=== PATIENT | female | born 1990 | race Caucasian/White ===

== ENCOUNTER 2017-03-21 13:47 | Emergency (ER) | payer OTHER ==
[~2017-03-21] VITALS: Ht 180.3 cm; Wt 59.0 kg
[2017-03-21 14:00] VITALS: BP 99/64
[2017-03-21 14:28] LABS: APPEARANCE,URINE VERY CLOUDY; KETONES,URINE 1+ (NEGATIVE); LEUKOCYTE ESTERASE ,URINE 3+ (NEGATIVE); NITRITE,URINE POSITIVE (NEGATIVE); PH,URINE 5 (4.5-8.0); PROTEIN,URINE 2+ (NEGATIVE); UROBILINOGEN,URINE 1 MG/DL (0.0-1.0)
[2017-03-21 14:41] LABS: BACTERIA,URINE MODERATE /HPF; SQUAMOUS EPITHELIAL CELL,UR FEW /LPF (NONE/OCC)
[2017-03-21 14:42] LABS: AMORPHOUS SEDIMENT,UR MODERATE /LPF; ICTOTEST NEGATIVE; MUCUS,URINE FEW /LPF (NONE/OCC)
[2017-03-21] MEDS ORDERED: IBUPROFEN600 MG ORAL (14:46)
[2017-03-21] MEDS ORDERED: NITROFURANTOIN100 M2 ORAL (14:46)
[2017-03-21 15:06] VITALS: BP 99/64
--- NOTE | 2017-03-21 22:19 | Emergency Room Report ---
History of Present Illness General Chief Complaint: Abdominal Pain Source: Patient (KATHRYN SHARP) Present Illness HPI The patient is a 26-year-old female presenting for possible urinary tract infection. She states that she has had vaginal pain, dysuria, and hematuria since yesterday. Pain is an 8/10 burning sensation. Does not radiate. She also admits to a dark brown vaginal discharge. She denies any other symptoms (KATHRYN SHARP) Allergies: Coded Allergies: No Known Allergies (Unverified , 03/21/17) Patient History Past Medical History: see triage record Pertinent Family History: none Last Menstrual Period: 02/23/17 Now: No Reviewed Nursing Documentation: PMH: Agreed, PSxH: Agreed (KATHRYN SHARP) Nursing Documentation-PMH Hx Cardiac Problems: No Hx Hypertension: No Hx Pacemaker: No Hx Asthma: No Hx COPD: No Hx Diabetes: No Hx Cancer: No Hx Gastrointestinal Problems: No Hx Dialysis: No History Of Psychiatric Problem: No Hx Neurological Problems: No Hx Cerebrovascular Accident: No Hx Seizures: No (KATHRYN SHARP) Review of Systems All Other Systems: negative except mentioned in HPI (KATHRYN SHARP) Physical Exam Vital Signs Date Time Temp Pulse Resp B/P (MAP) Pulse Ox O2 Delivery O2 Flow Rate FiO2 03/21/17 13:50 98.1 85 18 99/64 100 03/21/17 14:00 Room Air Sp02 EP Interpretation: reviewed, normal General Appearance: no apparent distress, alert, GCS 15, non-toxic Head: normocephalic, atraumatic Eyes: bilateral eye normal inspection, bilateral eye PERRL ENT: hearing grossly normal, normal pharynx, no angioedema, normal voice Neck: full range of motion, supple/symm/no masses Gastrointestinal: normal inspection, no guarding, tenderness - suprapubic Rectal: deferred Musculoskeletal: back normal, gait/station normal, normal range of motion, non- tender Neurologic: alert, oriented x3, responsive, motor strength/tone normal, sensory intact, speech normal Psychiatric: judgement/insight normal, memory normal, mood/affect normal, no suicidal/homicidal ideation Skin: normal color, no rash, warm/dry, well hydrated (KATHRYN SHARP) Medical Decision Making PA Attestation Dr. Onofre is my supervising physician. Patient management was discussed with my supervising physician (KATHRYN SHARP) Diagnostic Impression: Primary Impression: Urinary tract infection Qualified Codes: N30.01 - Acute cystitis with hematuria ER Course The patient is a 26-year-old female presenting for possible urinary tract infection Differential diagnosis considered but not limited to: UTI, BV, yeast infection, pyelonephritis, PID, PE: Vitals WNL. NAD. Abdomen: Normal appearance. Non distended. No ecchymosis. Normal BS. TTP over suprapubic region only. No McBurney point tenderness. No guarding. No CVA tenderness Urinalysis is consistent with urinary tract infection The patient discharged home with a prescription for Macrobid and is given ER precautions. Laboratory Tests Test 03/21/17 14:00 Urine Color Yellow Urine Appearance Very cloudy Urine pH 5 (4.5-8.0) Urine Specific Jennings 1.025 (1.005-1.035) Urine Protein 2+ (NEGATIVE) H Urine Glucose (UA) Negative (NEGATIVE) Urine Ketones 1+ (NEGATIVE) H Urine Occult Blood 5+ (NEGATIVE) H Urine Nitrite Positive (NEGATIVE) H Urine Bilirubin 1+ (NEGATIVE) H Urine Ictotest Negative Urine Urobilinogen 1 MG/DL (0.0-1.0) H Urine Leukocyte Esterase 3+ (NEGATIVE) H Urine RBC 5-10 /HPF (0 - 2) H Urine WBC 5-10 /HPF (0 - 2) H Urine Squamous Epithelial Cells Few /LPF (NONE/OCC) Urine Amorphous Sediment Moderate /LPF (NONE) H Urine Bacteria Moderate /HPF (NONE) H Urine Mucus Few /LPF (NONE/OCC) H Urine HCG, Qualitative Negative Lab Results Impression Consistent with UTI (KATHRYN SHARP.AMala) ER Course UA positive not susceptible to macrobid, called in cipro to pharmacy, informed patient o pick it up (Paty Goff M.D.) Last Vital Signs Date Time Temp Pulse Resp B/P (MAP) Pulse Ox O2 Delivery O2 Flow Rate FiO2 03/21/17 15:06 98.1 72 18 99/64 100 Room Air Status: improved (KATHRYN SHARPCynthia) Disposition: HOME, SELF-CARE Condition: Improved Scripts Nitrofurantoin Monohyd/M-Cryst* (MACROBID 100 MG*) 100 Mg Capsule 100 MG ORAL EVERY 12 HOURS, #14 CAP Prov: KATHRYN SHARP 03/21/17 Ibuprofen* (MOTRIN*) 600 Mg Tablet 600 MG ORAL Q8H Y for For Pain, #30 TAB 0 Refills Prov: KATHRYN SHARP 03/21/17 Referrals: NOT CHOSEN IPA/,REFERRING (PCP) Patient Instructions: Urinary Tract Infection, Abdominal Pain, Adult Additional Instructions: I discussed my findings with the patient. All questions and concerns have been answered. Treatment and medication compliance have been addressed. I advised the patient that they need to follow up with PMD in 3-5 days. Return to ED if symptoms worsen, new symptoms arise, or if needed for any reason. Patient verbalized understanding of discharge instructions. KATHRYN SHARP Mar 21, 2017 22:19 Paty Goff M.D. Mar 24, 2017 09:39
== END 2017-03-21 15:35 | disposition home or self-care (01) ==
LOC: EMR 14:05
DX: N39.0 Urinary tract infection, site not specified (principal)
CPT/HCPCS: 81003; 81025; 87086; 87181; 99284